=== PATIENT | female | born 1975 | race Caucasian/White ===

== ENCOUNTER 2018-10-23 15:31 | Emergency (ER) | payer MEDICAID ==
[~2018-10-23] VITALS: Wt 75.6 kg
[~2018-10-23 15:31] MED LIST: BACTDS PO; CEPH500C PO; DOCU-144 PO; HYDR-4011 PO; LACT1CAP17 PO; POLY17PO6 PO
[2018-10-23] MEDS ORDERED: ACETAMINOPHEN 325 MG TAB PO ONE (21:00)
[2018-10-23] MEDS ORDERED: ACET-141 PO (22:26)
[2018-10-23] MEDS ORDERED: NAPR-985 PO (22:26)
--- NOTE | 2018-10-23 22:27 | ERD ---
ER Documentation Chief Complaint Chief Complaint p fall off chair today: L leg, R rib, R COKER. no KO. ROS All systems reviewed and are negative except as per history of present illness. Medications Home Meds Active Scripts Naproxen* (Naprosyn*) 500 Mg Tablet, 500 MG PO BID PRN for PAIN AND/OR INFLAMMATION, #30 TAB Prov:GAVINO CID DO 10/23/18 Acetaminophen* (Acetaminophen*) 500 MG Extra Strength Tablet, 500 MG PO Q4H PRN for PAIN AND OR ELEVATED TEMP, #30 TAB Prov:GAVINO CID DO 10/23/18 Polyethylene Glycol* (Miralax*) 17 Gm Powd.pack, 17 GM PO DAILY PRN for CONSTIPATION, #30 PACKET Prov:FELIPE EDWARDS MD 08/30/16 Docusate Sodium* (Colace*) 100 Mg Capsule, 100 MG PO BID, #30 CAP Prov:FELIPE EDWARDS MD 08/30/16 Hydrocodone/Acetaminophen ([place] 5-325 Tablet) 1 Each Tablet, 1 EACH PO Q6 PRN for PAIN LEVEL 6-10 for 7 Days, TAB Prov:FELIPE EDWARDS MD 08/30/16 Lactobac Cmb #3/Fos/Pantethine (PROBIOTIC & ACIDOPHILUS CAP) 1 Each Capsule, 1 EACH PO BID WITH MEALS for 10 Days, CAP Prov:FELIPE EDWARDS MD 08/30/16 Sulfamethoxazole-Trimethoprim* (Bactrim* DS) 800-160 Mg Tab, 1 TAB PO BID, #20 TAB Prov:FELIPE EDWARDS MD 08/30/16 Cephalexin* (Cephalexin*) 500 Mg Capsule, 500 MG PO Q8, #30 CAP Prov:FELIPE EDWARDS MD 08/30/16 Allergies Allergies: Coded Allergies: No Known Allergy (Unverified , 08/27/16) PMhx/Soc History of Surgery: Yes (cessarian section x 4,hysterectomy.) Anesthesia Reaction: No Hx Neurological Disorder: No Hx Respiratory Disorders: No Hx Cardiac Disorders: No Hx Psychiatric Problems: No Hx Miscellaneous Medical Probl: No Hx Alcohol Use: No Hx Substance Use: No Hx Tobacco Use: No Smoking Status: Never smoker Physical Exam Vitals Vital Signs Date Temp Pulse Resp B/P (MAP) Pulse Ox O2 O2 Flow FiO2 Time Delivery Rate 10/23/18 99.4 77 20 155/93 96 16:02 (113) Physical Exam Const: No acute distress Head: Atraumatic Eyes: Normal Conjunctiva ENT: Normal External Ears, Nose and Mouth. Neck: Full range of motion. No meningismus. Resp: Clear to auscultation bilaterally Cardio: Regular rate and rhythm, no murmurs Abd: Soft, non tender, non distended. Normal bowel sounds Skin: No petechiae or rashes Back: No midline or flank tenderness Ext: No cyanosis, or edema Neur: Awake and alert Psych: Normal Mood and Affect Results 24 hrs Current Medications Medications Dose Sig/Cristofer Start Time Status Last (Trade) Ordered Route PRN Stop Time Admin Dose Reason Admin 650 mg ONCE ONCE 10/23/18 DC 10/23/18 Acetaminophen PO 21:00 21:05 (Tylenol 10/23/18 21:02 Tab) Departure Diagnosis: Primary Impression: Fall with no significant injury Encounter type: initial encounter Qualified Codes: W19.XXXA - Unspecified fall, initial encounter Condition: Fair Patient Instructions: Preventing Falls on the Job Referrals: [facility] YOU HAVE RECEIVED A MEDICAL SCREENING EXAM AND THE RESULTS INDICATE THAT YOU DO NOT HAVE A CONDITION THAT REQUIRES URGENT TREATMENT IN THE EMERGENCY DEPARTMENT. FURTHER EVALUATION AND TREATMENT OF YOUR CONDITION CAN WAIT UNTIL YOU ARE SEEN IN YOUR DOCTORS OFFICE WITHIN THE NEXT 1-2 DAYS. IT IS YOUR RESPONSIBILITY TO MAKE AN APPOINTMENT FOR FOLOW-UP CARE. IF YOU HAVE A PRIMARY DOCTOR --you should call your primary doctor and schedule an appointment IF YOU DO NOT HAVE A PRIMARY DOCTOR YOU CAN CALL OUR PHYSICIAN REFERRAL HOTLINE AT IF YOU CAN NOT AFFORD TO SEE A PHYSICIAN YOU CAN CHOSE FROM THE FOLLOWING [facility] [address] [facility] [address] [facility] [facility] [address] [facility] [facility] [address] [facility] [address] [facility] [facility]. [address] Additional Instructions: Call your primary care doctor TOMORROW for an appointment during the next 1-2 days.See the doctor sooner or return here if your condition worsens before your appointment time. Llame al doctor MAANA y kb chiqui LANI PARA DENTRO DE 1-2 AGEE.Dgale a la secretaria que nosotros le instruimos hacer esta lani.Avise o llame si colon condicin se empeora antes de la lani. Regresa aqui si peor o no mejor. GAVINO CID DO Oct 23, 2018 22:27
[2018-10-23 22:39] VITALS: BP 124/57; PULSE 83; RESP 18
== END 2018-10-23 22:41 | disposition home or self-care (01) ==
LOC: FTE 15:31
DX: M79.605 Pain in left leg (principal); R07.81 Pleurodynia; R51 Headache
CPT/HCPCS: 71100; 73562; 73590; Z7502; Z7610